=== PATIENT | female | born 1955 | race Caucasian/White ===

== ENCOUNTER 2019-03-01 05:06 | Inpatient (IN) ==
[2019-02-22 17:47] LABS: Appearance,Urine CLOUDY; Bacteria,Urine MANY /hpf (0); Bilirubin,Urine NEG (NEG); Color,Urine YELLOW; Glucose,Urine (UA) NEGATIVE (NEG); Leukocyte Esterase,Urine 25 /uL (NEG); Mucus,Urine MANY /hpf (0); Protein,Urine 30 mg/dL (NEG); Specific Gravity,Urine 1.034 (1.000-1.035); Urine Blood NEG mg/dL (<0.03); Urine Hyaline Cast 13 /lpf (0-2); Urine RBC 13 /hpf (0-1); Urine Squamous Epithelial Cell 45 /hpf (0-4); Urine WBC 20 /hpf (0-4); Urobilinogen,Urine NEG (NEG)
[2019-03-01] MEDS ORDERED: oxyCODONE 10 MG TAB.ER.12H PO SCH (06:00)
[2019-03-01] MEDS ORDERED: PREGABALIN 75 MG CAPSULE PO SCH (06:00)
[2019-03-01] MEDS ORDERED: CELECOXIB 200 MG CAPSULE PO SCH (06:00)
[2019-03-01] MEDS ORDERED: ceFAZolin 2 GM in DEXTROSE 5% IN WATER 50 ML IV SCH (06:00)
[2019-03-01] MEDS ORDERED: 0.9 % SODIUM CHLORIDE 9 ML, KETOROLAC 30 MG, ROPIVACAINE HCL/PF 49.5 ML, EPINEPHrine 0.... IJ SCH (06:00)
[2019-03-01] MEDS ORDERED: GENTAMICIN SULFATE 800 MG/20 ML VIAL IR ONE (08:09)
[2019-03-01] MEDS ORDERED: KETAMINE 100 MG/ML ML IV ONE (08:25)
[2019-03-01] MEDS ORDERED: ROPIVACAINE HCL/PF 30 ML VIAL IJ ONE (08:25)
[2019-03-01] MEDS ORDERED: GLYCOPYRROLATE 0.2 MG/ML VIAL IV ONE (08:25)
[2019-03-01] MEDS ORDERED: LIDOCAINE HCL/PF 100 MG/5 ML SYRINGE IV ONE (08:25)
[2019-03-01] MEDS ORDERED: PHENYLEPHRINE 10 MG/ML VIAL IV ONE (08:25)
[2019-03-01] MEDS ORDERED: ONDANSETRON 4 MG/2 ML VIAL IV ONE (08:25)
[2019-03-01] MEDS ORDERED: PROPOFOL 200 MG/20 ML VIAL IV ONE (08:25)
[2019-03-01] MEDS ORDERED: TRANEXAMIC ACID 1,000 MG/10 ML VIAL IV ONE ×2 (08:25→10:16)
[2019-03-01] MEDS ORDERED: MIDAZOLAM 2 MG/2 ML VIAL IV ONE (08:25)
[2019-03-01] MEDS ORDERED: FLEETS ADULT ENEMA PR PRN (10:16)
[2019-03-01] MEDS ORDERED: ONDANSETRON 4 MG/2 ML VIAL IV PRN ×3 (10:16→11:36)
[2019-03-01] MEDS ORDERED: BISACODYL 10 MG SUPP.RECT PR PRN (10:16)
[2019-03-01] MEDS ORDERED: BENZOCAINE/MENTHOL 1 LOZENGE PO PRN ×2 (10:16→10:26)
[2019-03-01] MEDS ORDERED: MAGNESIUM HYDROXIDE 30 ML ORAL.SUSP PO PRN (10:16)
[2019-03-01] MEDS ORDERED: HYDROcodone/APAP 10/325MG TABLET PO PRN (10:16)
[2019-03-01] MEDS ORDERED: POLYETHYLENE GLYCOL 3350 17 GM PACKET PO PRN (10:16)
--- NOTE | 2019-03-01 10:16 | Brief Operative Note ---
Date of procedure: 03/01/19 Pre-op diagnosis: DJD right knee Post-op diagnosis: same Procedure: KAPIL Right Knee replacement Grafts/Implants: Yes (Triathlon Right TKR) Anesthesia: TONA Surgeon: Agustín Merida Display Department Manager: Vinny Bernal Estimated blood loss (cc): 50 Tourniquet Time (Minutes): 73 Specimens Removed/Pathology: none sent Condition: stable Disposition: PACU
[2019-03-01] MEDS ORDERED: ALBUTEROL SULFATE 1 PUFF INHALER INH PRN (10:22)
[2019-03-01] MEDS ORDERED: fentaNYL 100 MCG/2 ML VIAL IV PRN (10:26)
[2019-03-01] MEDS ORDERED: ePHEDrine 50 MG/ML AMPUL IV PRN (10:26)
[2019-03-01] MEDS ORDERED: PROMETHAZINE 25 MG/ML VIAL IV PRN (10:26)
[2019-03-01] MEDS ORDERED: METHOCARBAMOL 1,000 MG/10 ML VIAL IV PRN (10:26)
[2019-03-01] MEDS ORDERED: MEPERIDINE 25 MG/ML SYRINGE IV PRN (10:26)
[2019-03-01] MEDS ORDERED: ACETAMINOPHEN 1,000 MG/100 ML BOTTLE IV ONE (10:26)
[2019-03-01] MEDS ORDERED: IPRATROPIUM/ALBUTEROL 3 ML AMPUL.NEB NEB PRN (10:26)
[2019-03-01] MEDS ORDERED: ACETAMINOPHEN 325 MG TABLET PO PRN (10:29)
[2019-03-01] MEDS ORDERED: LACTATED RINGERS 1,000 ML IV SCH (10:30)
[2019-03-01] MEDS ORDERED: PREDNISONE SCH (10:30)
--- NOTE | 2019-03-01 10:59 | Operative Note ---
DATE OF OPERATION: 03/01/2019 PREOPERATIVE DIAGNOSIS: Degenerative joint disease of the right knee. POSTOPERATIVE DIAGNOSIS: Degenerative joint disease of the right knee. OPERATION: Right total knee replacement with Jermain assistance. SURGEON: Agustín Merida M.D. INSURANCE SALES PRODUCER: Vinny Bernal PA-C. ANESTHESIA: General done by Etta Chester M.D. ESTIMATED BLOOD LOSS: 100 mL. TOURNIQUET TIME: 73 minutes. SUMMARY OF PROCEDURE: General anesthesia was attained. The right leg was prepped and draped. A midline incision was made from the quadriceps to the tibial tubercle. This was taken down sharply. A midvastus approach was used. The distal quadriceps and medial retinaculum were split. The patella was mobilized laterally. The anterior menisci were resected. Check points were placed in both the tibia and fibula. Two poke holes were made in the femur for the array and two in the tibia. These were unicortical. Two pins were placed in each bone with the drill and then the arrays were placed. The hip center of rotation was located by rotating the hip. We then affirmed the geography of the femur using the robot and the pointer. We did the same on the tibia. Anatomic points were confirmed using the Jermain system. The cuts were then made. The tibia was cut first, followed by the posterior femur, anterior femur, bevel cuts and distal cuts. Prior to making the cuts, balancing of the flexion and extension gaps were done using the robotic technology, and we were able to equalize these two gaps. Block was placed in the posterior aspect of the knee using a multimodal incision. Trials were done and the tibia was prepared. The no-touch test showed a lateral release was needed. The components were cemented in, being a 3 tibia, 4 femur, and 32 asymmetric patella. We did a measured resection on the patella to a depth of 9 mm, leaving 13 to 14 mm of patella. The cement was placed, followed by the components. Excess cement was removed with bone scrapers. The bone was cured with the knee in extension. The tourniquet was let down. All bleeding points were coagulated. The quadriceps and medial retinaculum were closed in two layers using buried FiberWires deep, followed by running locking Maxon. The subcutaneous tissue was closed with 2-0 buried Monocryl, and the skin was closed with cele. A sterile compressive dressing was applied. Sponge and needle count was correct. The patient tolerated the procedure well and was taken to the recovery room in stable condition. TJF:aaron Job ID: [id number] Doc ID: [id number] Agustín Merida MD
[2019-03-01] MEDS: 0.9 % SODIUM CHLORIDE 1,000 ML IV SCH (11:04)
[2019-03-01] MEDS ORDERED: HYDROCODONE/APAP 7.5/325MG TABLET PO PRN (11:36)
--- NOTE | 2019-03-01 12:16 | XRay Report ---
CLINICAL INFORMATION: Post-op total knee. COMPARISON: None. FINDINGS: Total knee prostheses is anatomically aligned. No osseous abnormalities. Soft tissue swelling and gas seen in expected. IMPRESSION: Negative Interpreted and Authenticated by: Jr Padgett 03/01/19
[2019-03-01] MEDS: HYDROCODONE/APAP 7.5/325MG TABLET PO PRN ×3 (13:00→22:36)
[2019-03-01] MEDS ORDERED: 0.9 % SODIUM CHLORIDE 10 ML SYRINGE IV SCH (14:00)
[2019-03-01] MEDS: 0.9 % SODIUM CHLORIDE 10 ML SYRINGE IV SCH ×2 (14:01→20:53)
[2019-03-01] MEDS: ceFAZolin 1 GM VIAL IV SCH (16:06)
[2019-03-01] MEDS: FERROUS SULFATE 325 MG TABLET PO SCH (17:26)
[2019-03-01] MEDS: SENNOSIDES 1 TABLET PO SCH (20:52)
[2019-03-01] MEDS: OXYBUTYNIN CHLORIDE 5 MG TAB.XL.24H PO SCH (20:52)
[2019-03-01] MEDS: SIMVASTATIN 10 MG TABLET PO SCH (20:52)
[2019-03-01] MEDS: ASPIRIN 81 MG TAB.CHEW PO SCH (20:53)
[2019-03-01] MEDS: DOCUSATE SODIUM 100 MG CAPSULE PO SCH (20:53)
[2019-03-01] MEDS: Budesonide/Formoterol Fumarate [Symbicort] 80-4.5 mcg Inhaler INH SCH (20:53)
[2019-03-02] MEDS: ceFAZolin 1 GM VIAL IV SCH (00:29)
[2019-03-02] MEDS: 0.9 % SODIUM CHLORIDE 1,000 ML IV SCH ×2 (00:31→14:31)
[2019-03-02] MEDS: HYDROCODONE/APAP 7.5/325MG TABLET PO PRN ×5 (03:35→20:32)
[2019-03-02] MEDS: 0.9 % SODIUM CHLORIDE 10 ML SYRINGE IV SCH ×4 (03:36→21:16)
--- NOTE | 2019-03-02 07:18 | Orthopedic Progress Note ---
Subjective Patient information: Note initiated : 03/02/19 at 7:16 am Service Date, if different from initiated Date: [] Patient: Christian Martin 64 y/o F admitted on 03/01/19 for Right Robotic Total Knee Arthroplasty. Chief Complaint: [] Principal diagnosis: knee replacement status right Objective Vital signs: Vital Signs Temp Pulse Resp BP Pulse Ox 03/02/19 07:05 98.6 F 20 100/53 95 03/02/19 03:34 97.7 F 62 20 141/63 95 03/01/19 23:46 98.7 F 59 L 20 138/73 98 03/01/19 19:29 97.3 F 69 18 140/52 96 03/01/19 16:00 98.4 F 70 16 110/62 96 03/01/19 14:16 98.2 F 72 16 98/58 92 03/01/19 13:16 98.0 F 70 16 102/57 91 03/01/19 12:47 98.5 F 73 16 99/53 94 03/01/19 12:16 98.0 F 79 16 102/64 97 03/01/19 12:02 98.2 F 81 16 100/54 100 03/01/19 11:46 98.7 F 75 16 98/48 97 03/01/19 11:32 98.5 F 64 16 93/49 98 03/01/19 11:17 98.5 F 65 16 92/51 96 03/01/19 11:15 98 03/01/19 11:05 97.2 F 72 17 110/54 100 03/01/19 10:50 98.4 F 74 19 106/57 96 03/01/19 10:43 79 16 145/62 100 03/01/19 10:35 98.8 F 80 18 168/61 97 Intake and Output 03/01/19 03/02/19 03/02/19 21:59 05:59 13:59 Intake Total 2270 200 Output Total 1176 0 Balance 1094 200 0 Intake: IV 520 Sodium Chloride 0.9% 1,000 ml @ 520 75 mls/hr IV .[id number] VOLODYMYR Rx#: [id number] Oral 950 200 GI Tube Flush 800 Output: Void Amount 1175 # of times incontinent of urine 1 0 Other: Urine Appearance Clear Clear Urine Color Pale Pale Urine Odor Normal Normal # Voids 1 1 1 Weight 203 lb Intake & Output: Intake & Output 03/01/19 03/02/19 03/02/19 21:59 05:59 13:59 Intake Total 2270 200 Output Total 1176 0 Balance 1094 200 0 Weight 203 lb Intake: IV 520 Sodium Chloride 0.9% 1,000 ml @ 520 75 mls/hr IV .[id number] VOLODYMYR Rx#: [id number] Oral 950 200 GI Tube Flush 800 Output: Void Amount 1175 # of times incontinent of urine 1 0 Other: Urine Appearance Clear Clear Urine Color Pale Pale Urine Odor Normal Normal # Voids 1 1 1 Dressing: Yes clean, Yes dry Extremities exam IM: Yes Foot pink and warm, Yes neurovascular intact - Diagnostic Results Knee x-ray: image reviewed (well aligned TKR) - Labs CBC & BMP: 03/02/19 04:45 Labs: 03/02/19 04:45 Hgb 10.6 L Assessment and Plan (1) Aftercare following right knee joint replacement surgery no flatus yet, moderate pain Plan is to continue PT and pain meds and observe for return of bowl function Status: Acute
[2019-03-02] MEDS: FERROUS SULFATE 325 MG TABLET PO SCH ×2 (08:05→16:05)
[2019-03-02] MEDS: metFORMIN 500 MG TAB.XL.24H PO SCH (08:05)
[2019-03-02] MEDS: Budesonide/Formoterol Fumarate [Symbicort] 80-4.5 mcg Inhaler INH SCH ×2 (08:10→20:33)
[2019-03-02] MEDS: ASPIRIN 81 MG TAB.CHEW PO SCH ×2 (08:57→20:32)
[2019-03-02] MEDS: LORATADINE 10 MG TABLET PO SCH (08:57)
[2019-03-02] MEDS: sitaGLIPtin 50 MG TABLET PO SCH (08:57)
[2019-03-02] MEDS: amLODIPine 5 MG TABLET PO SCH (08:57)
[2019-03-02] MEDS: OLMESARTAN MEDOXOMIL 20 MG TABLET PO SCH (08:57)
[2019-03-02] MEDS: ASCORBIC ACID 500 MG TABLET PO SCH (08:57)
[2019-03-02] MEDS: DOCUSATE SODIUM 100 MG CAPSULE PO SCH ×2 (08:57→20:32)
[2019-03-02] MEDS: OXYBUTYNIN CHLORIDE 5 MG TAB.XL.24H PO SCH ×2 (08:57→20:32)
[2019-03-02] MEDS: ACITRETIN 25 MG PO SCH (08:57)
[2019-03-02] MEDS: VITAMIN D3 1,000 UNIT TABLET PO SCH (08:58)
[2019-03-02] MEDS ORDERED: PNEUMOCOCCAL 23-VAL P-SAC VAC 0.5 ML SYRINGE IM ONE (10:00)
[2019-03-02] MEDS: SENNOSIDES 1 TABLET PO SCH (20:32)
[2019-03-02] MEDS: SIMVASTATIN 10 MG TABLET PO SCH (20:32)
[2019-03-03] MEDS: HYDROCODONE/APAP 7.5/325MG TABLET PO PRN ×3 (00:48→08:45)
[2019-03-03] MEDS: 0.9 % SODIUM CHLORIDE 10 ML SYRINGE IV SCH (05:04)
--- NOTE | 2019-03-03 07:39 | Orthopedic Progress Note ---
Subjective Patient information: Note initiated : 03/03/19 at 7:36 am Service Date, if different from initiated Date: [] Patient: Christian Martin 64 y/o F admitted on 03/01/19 for Right Robotic Total Knee Arthroplasty. Chief Complaint: [] Principal diagnosis: knee replacement status right Interval history: Patient slept well and does complain of a sore knee but is otherwise doing okay. She denies any numbness/tingling, TOLEDO, CP, SOB, or any other acute symptoms. Objective Vital signs: Vital Signs Temp Pulse Resp BP BP Pulse Ox 03/03/19 07:12 98.7 F 16 117/67 97 03/03/19 04:00 98.8 F 80 16 134/70 93 03/02/19 23:52 98.5 F 75 18 134/64 94 03/02/19 19:42 98 F 68 18 139/62 97 03/02/19 15:53 98.6 F 20 115/62 95 03/02/19 11:44 97.4 F 20 114/57 98 Intake and Output 03/02/19 03/03/19 03/03/19 21:59 05:59 13:59 Intake Total 1020 600 Output Total 200 Balance 820 600 Intake: Oral 1020 600 Output: Emesis 200 Other: Meal Dinner Percent of Meal Consumed 100% Feeding Ability Independent Urine Appearance Clear Urine Color Bright Yellow # Voids 1 1 Weight 201 lb 8 oz Intake & Output: Intake & Output 03/02/19 03/03/19 03/03/19 21:59 05:59 13:59 Intake Total 1020 600 Output Total 200 Balance 820 600 Weight 201 lb 8 oz Intake: Oral 1020 600 Output: Emesis 200 Other: Meal Dinner Percent of Meal Consumed 100% Feeding Ability Independent Urine Appearance Clear Urine Color Bright Yellow # Voids 1 1 Dressing: Yes clean, Yes dry, Yes intact - Labs CBC & BMP: 03/02/19 04:45 Labs: 03/02/19 04:45 Hgb 10.6 L Assessment and Plan (1) Aftercare following right knee joint replacement surgery Patient will continue PT in hospital until tomorrow Plan to discharge to home tomorrow Continue postop knee protocol Status: Acute
--- NOTE | 2019-03-03 07:43 | Discharge Summary ---
Providers - Providers Patient information: Note initiated : 03/03/19 at 7:41 am Service Date, if different from initiated Date: [] Patient: Christian Martin 64 y/o F admitted on 03/01/19 for Right Robotic Total Knee Arthroplasty. Chief Complaint: [] Patient is doing well and plan will be to discharge today. She denies any CP, TOLEDO, numbness/tingling, or any other acute symptoms. Discharge date: 03/03/19 Hospitalization Hospital course: Patient was admitted after surgery for postoperative pain control and PT. She had no complications during her stay. Discharge diagnosis: s/p Right total knee arthroplasty Exam - Exam Incision healing: Yes Incision draining: No Clean and dry: Yes Weight bearing status: full Range of motion: 5-50 Ortho Discharge - TKA - Patient Instructions Diet: Regular Diet Activity: activity as tolerated Total Knee Protocol: For Total Knee: Start ROM LAVERNE with stationary bike or rocking chair. Work on gaining full extension of knee. Posterior dislocation precautions provided. Hip abductor strengthening and gait training instructions provided. Apply Cryocuff as instructed. Dressing Care: May shower in 2 days Additional Dressing Instructions: Leave Dermabond in place over incision until 2 week follow up appointment. Patient Education: Total Knee Replacement (DC) Additional Instructions: Discharge Instructions: Do the exercises at home that physical therapy gave you. Wear comfortable clothi ng for your physical therapy. Weight bearing as tolerated. You are scheduled to start physical therapy at [facility] ([phone]) on March 05, at 10:30am. Please arrive 15 minutes early for paperwork. Take your prescription, photo ID, insurance cards, and current medication list with you to your first physical therapy appointment. Take your prescription to picking crew supervisor any medication. You have Dermabond (a dressing with a mesh-like appearance), DO NOT remove mesh. Cover site daily with gauze dressing. You may start showering on post op day #2. The Dermabond dressing can get wet, do not scrub dressing. Pat dry, then place new dressing (above). No soaking in tub, pool, or jacuzzi. To avoid constipation while taking any narcotic pain medication, take an over the counter stool softener/laxative. Use your Cryocuff or ice packs as directed, on for 20 minutes at a time throughout the day. This and elevation will help with pain and swelling. Call your physician for fevers above 100.5 or pain not controlled by medication. Your prescriptions are with your discharge information. Some medications were electronically transmitted to your pharmacy of choice. Take Aspirin twice daily, for 30 days, as prescribed to prevent blood clots (see medication list). - Problem Maintenance (1) Aftercare following right knee joint replacement surgery Status: Acute - Follow Up Plan Follow Up Appointments: Vinny Bernal PA-C [Physician Magnetic Grinder Operator] - 03/14/19 9:20 am Disposition: Home, Self-Care Prognosis: Good Rehab Potential: Good I certify that the patient requires SNF services: No Overall status at discharge: patient is progressing back to baseline - Orders For Discharge Prescriptions: Aspirin 325 mg PO BID #60 tab HYDROcodone/APAP 10/325MG [[place] 10-325Mg] 1 tab PO Q4-6HP PRN #90 tab PRN Reason: Pain Pending Studies Resuscitation Status Full Code Diet Regular Diet Start Vera March 01 Lunch Hydrocodone Bitart/Acetaminophen ([place] 7.5/325mg) 0 tab PO Q4HP PRN PRN Reason: Pain Last Admin: 03/03/19 05:02 Dose: 2 tab Documented by: Admin: 03/03/19 00:48 Dose: 2 tab Documented by: Admin: 03/02/19 20:32 Dose: 2 tab Documented by: Admin: 03/02/19 16:03 Dose: 2 tab Documented by: Admin: 03/02/19 11:57 Dose: 2 tab Documented by: Admin: 03/02/19 08:05 Dose: 2 tab Documented by: Admin: 03/02/19 03:35 Dose: 2 tab Documented by: Admin: 03/01/19 22:36 Dose: 2 tab Documented by: Admin: 03/01/19 17:25 Dose: 2 tab Documented by: Admin: 03/01/19 13:00 Dose: 2 tab Documented by: NIKOLAI Amlodipine Besylate (Norvasc) 5 mg PO DAILY [facility] Last Admin: 03/02/19 08:57 Dose: 5 mg Documented by: MARCE Ascorbic Acid (Vitamin C) 1,000 mg PO DAILY [facility] Last Admin: 03/02/19 08:57 Dose: Not Given Documented by: MARCE Aspirin (Aspirin) 81 mg PO BID [facility] Last Admin: 03/02/19 20:32 Dose: 81 mg Documented by: Admin: 03/02/19 08:57 Dose: 81 mg Documented by: Admin: 03/01/19 20:53 Dose: 81 mg Documented by: ALEM Docusate Sodium (Colace) 100 mg PO BID [facility] Last Admin: 03/02/19 20:32 Dose: 100 mg Documented by: Admin: 03/02/19 08:57 Dose: 100 mg Documented by: Admin: 03/01/19 20:53 Dose: 100 mg Documented by: ALEM Ferrous Sulfate (Ferrous Sulfate) 325 mg [facility] Last Admin: 03/02/19 16:05 Dose: Not Given Documented by: Admin: 03/02/19 08:05 Dose: 325 mg Documented by: Admin: 03/01/19 17:26 Dose: 325 mg Documented by: NIKOLAI Loratadine (Claritin) 10 mg PO DAILY [facility] Last Admin: 03/02/19 08:57 Dose: Not Given Documented by: MARCE Metformin HCl (Glucophage) 1,000 mg PO [facility] Last Admin: 03/02/19 08:05 Dose: 1,000 mg Documented by: MARCE Morphine Sulfate (Morphine) 0 mg IV Q1HP PRN PRN Reason: PAIN LEVEL > 6 Last Admin: 03/02/19 05:01 Dose: 2 mg Documented by: Admin: 03/01/19 19:47 Dose: 2 mg Documented by: Admin: 03/01/19 14:53 Dose: 4 mg Documented by: [email or web address] Olmesartan (Benicar) 40 mg PO DAILY [facility] Last Admin: 03/02/19 08:57 Dose: 40 mg Documented by: MARCE Ondansetron HCl (Zofran) 4 mg IV Q4HP PRN PRN Reason: Nausea And Vomiting Last Admin: 03/02/19 13:30 Dose: 4 mg Documented by: [email or web address] Oxybutynin Chloride (Ditropan Xl) 10 mg PO BID [facility] Last Admin: 03/02/19 20:32 Dose: 10 mg Documented by: Admin: 03/02/19 08:57 Dose: 10 mg Documented by: Admin: 03/01/19 20:52 Dose: 10 mg Documented by: ALEM Acitretin [Soriatane (] 25 Mg Tab) 1 dose PO DAILY [facility] Last Admin: 03/02/19 08:57 Dose: Not Given Documented by: MARCE Budesonide/Formoterol Fumarate [Symbicort] 80-4.5 Mcg Inhaler 1 dose INH BID [facility] Last Admin: 03/02/19 20:33 Dose: 1 dose Documented by: Admin: 03/02/19 08:10 Dose: 1 dose Documented by: Admin: 03/01/19 20:53 Dose: 1 dose Documented by: ALEM Lechuga (Senokot) 2 tab PO [facility] Last Admin: 03/02/19 20:32 Dose: 2 tab Documented by: Admin: 03/01/19 20:52 Dose: 2 tab Documented by: ALEM Simvastatin (Zocor) 10 mg PO HS [facility] Last Admin: 03/02/19 20:32 Dose: 10 mg Documented by: Admin: 03/01/19 20:52 Dose: 10 mg Documented by: ALEM Sitagliptin Phosphate (Januvia) 50 mg PO DAILY [facility] Last Admin: 03/02/19 08:57 Dose: 50 mg Documented by: MARCE Sodium Chloride (Saline Flush) 10 ml IV Q8 [facility] Last Admin: 03/03/19 05:04 Dose: 10 ml Documented by: Admin: 03/02/19 21:16 Dose: 10 ml Documented by: Admin: 03/02/19 16:03 Dose: 10 ml Documented by: Admin: 03/02/19 05:01 Dose: 10 ml Documented by: Admin: 03/02/19 03:36 Dose: 10 ml Documented by: Admin: 03/01/19 20:53 Dose: 10 ml Documented by: Admin: 03/01/19 14:01 Dose: Not Given Documented by: [email or web address] Vitamin D (Vitamin D3) 1,000 unit PO DAILY [facility] Last Admin: 03/02/19 08:58 Dose: Not Given Documented by: MARCE Shift Summary 03/03/19 04:41 Shift Summary by William Sharma Pt has rested on & off tonight. She has been tolerating a 7-8/10 RT knee pain rating tonight - [place] 7.5 (2) PO given Q 4hrs - next dose to be given around 0500 - she declined to use the IV pain med, when offered. Cryo-cuff also on & off frequently through the shift. She has been up AMB to & from the B.R - gait mostly stable w/ FWW & SBA - also AMB out in [place] x1 this young. CPM on x1 for 30 min 0-50 last young. Voiding QS. No BM, and no nausea tonight - scheduled HS colace & senna given. Tima wrap to RT leg - C,D,I. Saline lock to her LT wrist - flushed & patent. VS - WNL on R.A.. She is A&O x4, calm, pleasant, & cooperative. Looking forward to D/C home later today. Initialized on 03/03/19 04:41 - END OF NOTE
[2019-03-03] MEDS: ACITRETIN 25 MG PO SCH (08:08)
[2019-03-03] MEDS: ASCORBIC ACID 500 MG TABLET PO SCH (08:28)
[2019-03-03] MEDS: FERROUS SULFATE 325 MG TABLET PO SCH (08:29)
[2019-03-03] MEDS: DOCUSATE SODIUM 100 MG CAPSULE PO SCH (08:29)
[2019-03-03] MEDS: sitaGLIPtin 50 MG TABLET PO SCH (08:29)
[2019-03-03] MEDS: OLMESARTAN MEDOXOMIL 20 MG TABLET PO SCH (08:29)
[2019-03-03] MEDS: ASPIRIN 81 MG TAB.CHEW PO SCH (08:29)
[2019-03-03] MEDS: amLODIPine 5 MG TABLET PO SCH (08:29)
[2019-03-03] MEDS: LORATADINE 10 MG TABLET PO SCH (08:29)
[2019-03-03] MEDS: VITAMIN D3 1,000 UNIT TABLET PO SCH (08:29)
[2019-03-03] MEDS: OXYBUTYNIN CHLORIDE 5 MG TAB.XL.24H PO SCH (08:29)
[2019-03-03] MEDS: metFORMIN 500 MG TAB.XL.24H PO SCH (08:29)
[2019-03-03] MEDS: Budesonide/Formoterol Fumarate [Symbicort] 80-4.5 mcg Inhaler INH SCH (08:33)
== END 2019-03-03 09:47 | disposition home or self-care (01) | DRG 470 ==
LOC: MEDSUR 05:06
PROVIDERS: ADMIT Orthopaedic Surgery Foot and Ankle Surgery; ATTEND Orthopaedic Surgery Foot and Ankle Surgery